=== PATIENT | male | born 1990 | race Caucasian/White ===

== ENCOUNTER 2018-07-25 20:29 | Emergency (ER) | payer BC, OTHER ==
[~2018-07-25] VITALS: Ht 177.8 cm; Wt 79.4 kg
[2018-07-25] MEDS ORDERED: NAPR-1071 PO (22:59)
[2018-07-25] MEDS ORDERED: NAPROXEN 250 MG (NAPROSYN) TABLET PO STA (23:00)
--- NOTE | 2018-07-25 23:00 | ED Lower Extremity ---
General Chief Complaint: Lower Extremity Stated Complaint: LT FOOT PAIN Nursing Triage Note: THE PT IS AMBULATORY TO THE ROOM WITHOUT DIFFICULTY. NO DISTRESS IS SEEN ON ARRIVAL. LOC IS NORMAL FOR THE PT. THE PT C/O LEFT FOOT PAIN. NO RECENT INJURY. Nursing Sepsis Screen: No Definite Risk History of Present Illness Date Seen by Provider: Jul 25, 2018 Time Seen by Provider: 21:15 Initial Comments 27-year-old male presents for left foot pain. He denies a specific injury to his foot. It mainly hurts along the arch and mid foot. He has been working aggressively, building fence and doing cattle. His pain has been intermittent over the last week, however he noted it to be more persistent today. Pain/Injury Location: left foot Method of Injury: unknown Allergies and Home Medications Allergies Coded Allergies: No Known Drug Allergies (Unverified , 07/25/18) Home Medications Naproxen 500 Mg Tablet, 500 MG PO BID Prescribed by: SHAYLA NIX on 07/25/18 1222 Patient Home Medication List Home Medication List Reviewed: Yes Review of Systems Constitutional: no symptoms reported, see HPI Musculoskeletal: see HPI, joint pain (left foot) All Other Systems Reviewed Negative Unless Noted: Yes Past Dzdgnqd-Xcijti-Alwias Hx Past Med/Social Hx: Reviewed Nursing Past Med/Soc Hx Patient Social History Recent Foreign Travel: No Contact w/Someone Who Travel: No Recent Infectious Disease Expo: No Physical Abuse: No Sexual Abuse: No Mistreated: No Fear: No Physical Exam Vital Signs Vital Signs - First Documented 07/25/18 07/25/18 20:38 23:10 Temp 96.9 Pulse 83 Resp 16 B/P (MAP) 150/74 (99) Pulse Ox 98 O2 Delivery Room Air Capillary Refill : Less Than 3 Seconds Height, Weight, BMI Height: 5'10.00" Weight: 175lbs. oz. 79.377182hi; BMI Method:Estimated General Appearance: WD/WN, no apparent distress Cardiovascular: normal peripheral pulses, regular rate, rhythm, no edema, no murmur Respiratory: chest non-tender, lungs clear, normal breath sounds Gastrointestinal: normal bowel sounds, non tender, soft Feet: left foot normal range of motion, left foot bone tenderness (first through third metatarsals), left foot soft tissue tenderness, left foot swelling , left foot other (patient has pain with toe walk, he is able to walk on his heels. Pes planus noted.) Neurologic/Psychiatric: no motor/sensory deficits, alert, normal mood/affect, oriented x 3 Skin: normal color, warm/dry Lymphatic: no adenopathy Progress/Results/Core Measures Results/Orders My Orders Orders - BOYDSHAYLA Doyle JOAN Foot, Left, 3 Views (07/25/18 22:09) Tramadol Tablet (Ultram Tablet) (07/25/18 22:09) Ibuprofen Tablet (Motrin Tablet) (07/25/18 23:04) Vital Signs/I&O 07/25/18 07/25/18 20:38 23:10 Temp 96.9 98.1 Pulse 83 60 Resp 16 18 B/P (MAP) 150/74 (99) 133/73 (93) Pulse Ox 98 98 O2 Delivery Room Air Blood Pressure Mean: 99 Departure Impression Primary Impression: Sprain of foot, left Qualified Codes: S93.602A - Unspecified sprain of left foot, initial encounter Disposition: HOME, SELF-CARE Condition: Improved Departure-Patient Inst. Decision time for Depature: 22:30 Referrals: JOHAN APPLE MD (PCP/Family) Primary Care Physician Patient Instructions: Sprain (DC) Add. Discharge Instructions: Ice and elevate left foot for 20 minutes 2-3 times a day. Take Naprosyn one tablet twice daily as prescribed. Until you get the Naprosyn, you can take Ibuprofen 600 mg every 8 hours, but don't take Ibuprofen or Advil while taking Naprosyn. You may add additional Tylenol 650 mg every 6 hours as needed for pain. Use Ayaan wrap for the next 3-4 days, or until symptoms are improving. Get an arch support insert for your shoe or foot wrap. Follow-up with your primary care provider if symptoms are not improving or worsen. Return to emergency department for new, urgent health care problems. All discharge instructions reviewed with patient and/or family. Voiced understanding. Scripts Naproxen (Naprosyn) 500 Mg Tablet 500 MG PO BID, #30 TAB 2 Refills Prov: BOYDSHAYLA FRANCO 07/25/18 BOYDSHAYLA Jul 25, 2018 23:00
[2018-07-25] MEDS ORDERED: IBUPROFEN 800 MG (MOTRIN) TAB PO STA (23:04)
[2018-07-25 23:10] VITALS: BP 133/73
--- NOTE | 2018-07-26 07:19 | Diagnostic Imaging Report ---
INDICATION: Left foot pain 3 views of the left foot show no fracture, dislocation or other acute abnormalities. IMPRESSION: Negative left foot. Dictated by: Dictated on workstation # [id number]
== END 2018-07-25 23:10 | disposition home or self-care (01) ==
LOC: EDUNIT# 20:29 → ER 20:30
DX: S93.602A Unspecified sprain of left foot, initial encounter (principal); X58.XXXA Exposure to other specified factors, initial encounter
CPT/HCPCS: 73630

== ENCOUNTER → 2019-03-19 | Outpatient (CLI) | payer BC ==
[~2019-03-19] MED LIST: NAPR-1071 PO
[2019-03-19 07:52] LABS: HEMOGLOBIN 15.6 G/DL (13.3-17.7); MEAN PLATELET VOLUME 11.3 FL (7.4-10.4); RED CELL DISTRIBUTION WIDTH 12.5 % (10.0-14.5); WHITE BLOOD COUNT 7.9 10^3/uL (4.3-11.0)
[2019-03-19 08:13] LABS: ALANINE AMINOTRANSFERASE 14 U/L (0-55); ALBUMIN 4.8 GM/DL (3.2-4.5); ALKALINE PHOSPHATASE 82 U/L (40-136); BILIRUBIN,TOTAL 1.4 MG/DL (0.1-1.0); BUN/CREATININE RATIO 11; CARBON DIOXIDE 26 MMOL/L (21-32); CHLORIDE 104 MMOL/L (98-107); CREATININE SERUM 1.16 MG/DL (0.60-1.30); GFR ESTIMATED > 60; GLUCOSE 93 MG/DL (70-105); POTASSIUM 4.3 MMOL/L (3.6-5.0); SODIUM 142 MMOL/L (135-145); TOTAL PROTEIN 7.2 GM/DL (6.4-8.2)
--- NOTE | 2019-03-19 08:54 | Diagnostic Imaging Report ---
PROCEDURE: US Gallbladder. TECHNIQUE: Multiple real-time grayscale images were obtained over the right upper quadrant in various projections. INDICATION: Diarrhea. FINDINGS: Liver measures 16 cm in size. No discrete liver mass is identified. The portal vein is patent and shows normal direction of flow. Gallbladder is without stones or sludge. No wall thickening or biliary duct dilatation is seen. Pancreas is unremarkable. Right kidney is unremarkable. No calculi or hydronephrosis is seen. There is no ascites. IMPRESSION: Unremarkable gallbladder ultrasound. Dictated by: Dictated on workstation # [id number]
== END ==
LOC: RAD 07:36
PROVIDERS: ATTEND Nurse Practitioner Family
DX: R19.7 Diarrhea, unspecified (principal)
CPT/HCPCS: 36415; 76705; 80053; 85027

== ENCOUNTER → 2019-04-09 | Outpatient (CLI) | payer BC ==
[2019-04-09] MEDS: CATHETER FLUSH 10 ML SYR IV PRN (11:52)
--- NOTE | 2019-04-09 17:15 | Diagnostic Imaging Report ---
INDICATION: Diarrhea. TECHNIQUE: Patient was administered 5.5 mCi of technetium-99m Choletec intravenously and imaging over the abdomen was performed. At 75 minutes, patient ingested Ensure and gallbladder ejection fraction is calculated. FINDINGS: There is homogeneous uptake of activity by the liver. There is excretion of activity into the common duct and gallbladder. There is passage of activity into the small bowel. Gallbladder ejection fraction is abnormally low at 12%. IMPRESSION: 1. Patent cystic duct and common bile duct. 2. Low gallbladder ejection fraction of 12%. Dictated by: Dictated on workstation # [id number]
== END ==
LOC: CARD 11:34
PROVIDERS: ATTEND Nurse Practitioner Family
DX: K58.0 Irritable bowel syndrome with diarrhea (principal)
CPT/HCPCS: 78227

== ENCOUNTER 2019-04-20 06:00 | Outpatient (CLI) | payer BC ==
[~2019-04-20] VITALS: Ht 177.8 cm; Wt 72.6 kg
[2019-04-22] MEDS ORDERED: ACHD5005 PO (10:20)
== END 2019-04-20 16:03 | disposition home or self-care (01) ==
LOC: PREOP 06:00
PROVIDERS: ATTEND Surgery
DX: Z01.818 Encounter for other preprocedural examination (principal)

== ENCOUNTER 2019-04-22 07:33 | Day surgery (SDC) | payer BC ==
[2019-04-22] VITALS (11 sets, daily range): BP systolic 121–142; BP diastolic 84–96
[~2019-04-22] VITALS: Ht 177.8 cm; Wt 72.6 kg
[~2019-04-22 07:33] MED LIST changes: +BUP/EPI 0.25% 1:200,000 (MARCAINE) 10 ML VIAL IJ ONE
[2019-04-22] MEDS ORDERED: fentaNYL INJECTION 100 MCG/2 ML AMP ONE (07:55)
[2019-04-22] MEDS ORDERED: MIDAZOLAM 2 MG/2 ML (VERSED) VIAL ONE (07:55)
[2019-04-22] MEDS ORDERED: ONDANSETRON 4 MG/2 ML (SDV) Z0FRAN ONE (07:55)
[2019-04-22] MEDS ORDERED: SEVOFLURANE (ULTANE) 15 ML INHAL SOLN ONE ×3 (07:55→09:47)
[2019-04-22] MEDS ORDERED: proPOfol 200 MG/20 ML (DIPRIVAN) VIAL IV ONE (07:55)
[2019-04-22] MEDS ORDERED: LIDOCAINE PF 2% 5 ML (XYLOCAINE) VIAL ONE (07:55)
[2019-04-22] MEDS ORDERED: DEXAMETHASONE 10 MG/ML (DECADRON) 1 ML VIAL ONE (07:55)
[2019-04-22] MEDS ORDERED: INDOCYANINE GREEN 25 MG (ICG) VIAL IV NR (08:00)
[2019-04-22] MEDS ORDERED: ceFAZolin 2 GM/50 ML NS 50 ML IV ONE (08:00)
[2019-04-22] MEDS ORDERED: ROCURONIUM 10 MG/ML 5 ML SYRINGE IV ONE (08:02)
--- NOTE | 2019-04-22 08:24 | Progress Note-Pre Operative ---
Pre-Operative Progress Note H&P Reviewed The H&P was reviewed, patient examined and no changes noted. Time Seen by Provider: 08:17 Date H&P Reviewed: Apr 22, 2019 Time H&P Reviewed: 08:18 Pre-Operative Diagnosis: Biliary Dyskinesia MIGUEL SHEPHERD DO Apr 22, 2019 08:24
[2019-04-22] MEDS: LACTATED RINGERS 1,000 ML IV PRN ×2 (08:30→09:50)
[2019-04-22] MEDS ORDERED: NEOSTIGMINE 3 MG/3 ML VIAL ONE (09:14)
[2019-04-22] MEDS ORDERED: GLYCOPYRROLATE 0.2 MG/ML (ROBINUL) 2 ML VIAL ONE (09:14)
--- NOTE | 2019-04-22 10:18 | Progress Note-Post Operative ---
Post-Operative Progess Note Surgeon (s)/Rebar Bender (s) Surgeon MIGUEL SHEPHERD DO Rebar Bender: Theron Pre-Operative Diagnosis Biliary Dyskinesia Post-Operative Diagnosis Same plus adhesions Procedure & Operative Findings Date of Procedure 04/22/19 Procedure Performed/Findings Lap kerry with Firefly Cholangiogram, with Robot Anesthesia Type GET Estimated Blood Loss Estimated blood loss (mL): scant Specimens/Packing Specimens Removed GB and contents MIGUEL SHEPHERD DO Apr 22, 2019 10:18
--- NOTE | 2019-04-22 10:19 | Discharge Inst-Surgical ---
Discharge Inst-Surgical Reconcile Patient Problems Problems Reviewed?: Yes Depart Medication/Instructions New, Converted or Re-Newed RX: RX Given to Pt/Family Patient Instructions Follow up Appt: Make appointment for 1 week. [phone] Instructions: No lifting greater than 20 pounds. No strenuous activity. May shower in 24 hours, no tub bath or soaking. Use incentive spirometer at home as directed. No Smoking Skin/Wound Care: May remove bandages in am. You need to leave the Dermabond on incision it will fall off on it's own. Symptoms to Report: Appetite Changes, Extremity Discoloration, Numbness/Tingling, Swelling Increased, Bleeding Excessive, Eyesight Changes, Pain Increased, Urine Color Change, Constipation(Persistent), Fever over 101 degree F, Pain/Pressure in chest, Urinating Difficulty, Cough Up/Vomit Blood, Heart Beat Irreg/Pounding, Pain/Pressure in jaw, Cramps in feet or legs, Lightheadedness, Pain/Pressure in shoulder, Diarrhea(Persistent), Memory Changes Suddenly, Questions/Concerns, Weight gain consecutive days, Dizziness/Fainting, Nausea/Vomiting, Shortness of Breath, Weight gain over 2 pounds If questions or concerns contact your physician Or seek help at emergency department. Activity Activity as Tolerated: Yes Activity Instructions: Avoid Stress to Incision Driving Instructions: No Driving/Refer to Diet Discharge Diet: Avoid Fatty Foods, Low Fat/Low Cholesterol Diet After 24 Hours: Clear Liquid if Nauseous If Any Problems/Questions/Issu: Contact Your Physician, Go to Emergency Room, Go to [facility] Skin/Wound Care Infection Signs and Symptoms: Increased Redness, Foul Odor of Wound, Increased Drainage, Skin Itchy or Has a Rash, Increased Swelling, Temperature Above 101 F Wound Care Comment: heating pad to shoulder or neck tonight for pain Bathing Instructions: Shower Stitches/Kodi/Dermabond Dis: Dermabond Ice Pack: Ice On and Off Site MIGUEL SHEPHERD DO Apr 22, 2019 10:19
[2019-04-22] MEDS ORDERED: ACHD5005 PO (10:20)
--- NOTE | 2019-04-22 10:28 | Anesthesia-General Post-Op ---
General Patient Condition Mental Status/LOC: Same as Preop Cardiovascular: Satisfactory Nausea/Vomiting: Absent Respiratory: Satisfactory Pain: Controlled Complications: Absent Post Op Complications Complications None Follow Up Care/Instructions Patient Instructions None needed. Anesthesia/Patient Condition Patient Condition Patient is doing well, no complaints, stable vital signs, no apparent adverse anesthesia problems. No complications reported per nursing. ELDA CALDERON CRNA Apr 22, 2019 10:28
[2019-04-22] MEDS ORDERED: MEPERIDINE (DEMEROL) INJ 50 MG/ML IVP ONE (10:45)
[2019-04-22] MEDS ORDERED: ONDANSETRON 4 MG/2 ML (SDV) Z0FRAN IVP PRN (10:45)
[2019-04-22] MEDS ORDERED: morphine INJ 10 MG/ML 1ML (SYR OR VIAL) IVP ONE (10:45)
--- NOTE | 2019-04-22 11:20 | NUR ---
TO AMB SURG PER CART FROM PAR. ALERT, RATES ABDOMINAL DISCOMFORT 3. DERMABOND INTACT TO X4 LAP SURGICAL SITES, ICE PACK ON. PO FLUIDS AND CRACKERS PROVIDED. BED LOW, LOCKED, RAILS UP X2. CALL LIGHT TO PT AND FAMILY AT SIDE.
[2019-04-22] MEDS ORDERED: HYDROcodone/APAP 5 MG/325 MG (LORTAB) TAB PO ONE (12:00)
--- NOTE | 2019-04-22 12:01 | NUR ---
TAKING PO FLUIDS AND CRACKERS WITHOUT PROBLEM. LORTAB 5/325 MG, ONE TAB, GIVEN PO FOR C/O ABD PAIN RATED 3.
--- NOTE | 2019-04-22 12:40 | NUR ---
RATES ABD/SURGICAL SITE PAIN 2. ALERT, VISITING WITH FAMILY. STATES HE IS READY FOR DISMISSAL.
--- NOTE | 2019-04-22 16:49 | OPERATIVE REPORT ---
DATE OF SERVICE: 04/22/2019 PREOPERATIVE DIAGNOSIS: Biliary dyskinesia. POSTOPERATIVE DIAGNOSES: 1. Biliary dyskinesia. 2. Adhesions. PROCEDURE: Laparoscopic cholecystectomy with robot and Firefly cholangiogram. SURGEON: Trell Heredia DO [employer]: Kevin Crump DO ANESTHESIA: General endotracheal tube. SPECIMEN: Gallbladder and contents. BLOOD LOSS: Scant. FLUIDS: Per anesthesia. POSTOPERATIVE CONDITION: Stable. INDICATION FOR THE PROCEDURE: The patient is a 28-year-old male, who has been having pain in the right upper quadrant. A HIDA scan showed biliary dyskinesia and wanted to get his gallbladder removed. FINDINGS: The patient had a distended gallbladder, some adhesions too, which usually indicates previous gallbladder attack and cholecystitis and this was removed. PROCEDURE NOTE: After informed consent was obtained, the patient was brought to the operating room, placed on the table in supine position, sterilely prepped and draped in normal fashion. Local lidocaine was used to infiltrate the skin above the umbilicus. I made an incision with #11 blade, carried down through the skin into subcutaneous tissue, deepened down to subcutaneous tissue with Bovie electrocautery down to the fascia. Fascia was incised with Bovie electrocautery, bluntly entered the abdomen, swept a finger around, placed 0 Vicryl [id number] suture and placed a 11 mm trocar port under direct visualization. Created pneumoperitoneum and placed 3 more ports in normal fashion using local lidocaine. A 11 blade for stab incision and then advanced the 8 mm robotic ports under direct visualization, one in the right lower quadrant, and 2 in the left upper quadrant. Once this was in, I then docked the robot. I then went to the console. Able to grasp the gallbladder at the fundus and taken in superior direction, noted adhesions. These were carefully taken down with Bovie electrocautery. Once these were completely free, then able to grasp the Charles's pouch and pulled in inferolateral direction, started dissecting out the cystic duct and cystic artery. Using Firefly, able to identify the cystic duct and followed it down to the common bile duct and then watched it go into the small intestine. At this point, then carefully started continuing to dissect out the cystic duct, identified the cystic artery, able to get around the cystic duct to create a space and then able to get around the cystic artery and then used the bipolar cautery to cauterize the cystic artery. Once this was done, then placed clips, 2 clips distally and 1 proximally on the cystic duct and then cut the cystic duct with Bovie electrocautery on a cut position. I then continued taking the gallbladder to the liver with L-hook cautery. Once this was completely removed, placed a bag in the abdomen, placed the gallbladder in the bag and I then removed the supraumbilical incision. Once this was done, then carefully removed all ports under direct visualization, allowed pneumoperitoneum to escape, closed supraumbilical incision, closing the fascia with 0 Vicryl suture previously placed. Copiously irrigated all incisions with normal saline, closing the three 8 mm incisions with 4-0 undyed Monocryl subcuticular stitches. Area was cleaned and dried. Dermabond was placed. Sponge, instrument and needle counts were correct at the end of the case. Dr. Crump assisted in this case helping to make incisions, close incisions as well as identify anatomy. The patient tolerated the procedure well. Job ID: [id number] DocumentID: [id number] Dictated Date: 04/22/2019 10:09:45 Datastage Developer Date: 04/22/2019 16:48:29 Dictated By: TRELL HEREDIA DO
== END 2019-04-22 13:00 | disposition home or self-care (01) ==
LOC: SDC 07:33
PROVIDERS: ATTEND Surgery
DX: K81.1 Chronic cholecystitis (principal); K82.8 Other specified diseases of gallbladder; K66.0 Peritoneal adhesions (postprocedural) (postinfection); Z82.49 Family history of ischemic heart disease and other diseases of the circulatory system; Z87.891 Personal history of nicotine dependence
CPT/HCPCS: 87081; 88304; 94664

== ENCOUNTER → 2020-10-17 | Outpatient (CLI) | payer BC ==
[~2020-10-17] MED LIST changes: +ACHD5005 PO; -BUP/EPI 0.25% 1:200,000 (MARCAINE) 10 ML VIAL IJ ONE
--- NOTE | 2020-10-17 16:56 | Diagnostic Imaging Report ---
EXAMINATION: CT head without contrast. TECHNIQUE: Multiple contiguous axial images were obtained through the brain without the use of intravenous contrast. All CT scans use one or more of the following dose optimizing techniques: automated exposure control, MA and/or KvP adjustment based on a patient size and exam type, or iterative reconstruction. HISTORY: Headaches. Dizziness. Migraines. COMPARISON: None available. FINDINGS: No large acute territorial ischemia, mass, or hemorrhage. No midline shift or mass effect. The ventricles, cortical sulci, and basilar cisterns are patent and unremarkable. The orbits are normal. A small amount of retained secretions are seen in the right ethmoid and right frontal sinuses. Mastoid air cells are clear. No soft tissue abnormality is seen. No osseus lesions or fractures are seen. IMPRESSION: 1. No large acute territorial ischemia, mass, or hemorrhage. Dictated by: Dictated on workstation # [id number]
== END ==
LOC: RAD 16:12
PROVIDERS: ATTEND Nurse Practitioner Family
DX: G43.909 Migraine, unspecified, not intractable, without status migrainosus (principal)
CPT/HCPCS: 70450

== ENCOUNTER 2021-02-01 08:31 | Outpatient (CLI) | payer BC | END 2021-02-01 08:50 | LOC: SLEEP 08:31 | PROVIDERS: ATTEND Nurse Practitioner | DX: G47.33 Obstructive sleep apnea (adult) (pediatric) (principal); G47.10 Hypersomnia, unspecified; H81.8X3 Other disorders of vestibular function, bilateral | CPT/HCPCS: G0399 ==

== ENCOUNTER → 2021-02-22 | Outpatient (CLI) | payer BC ==
--- NOTE | 2021-02-27 11:55 | Holter Monitor ---
HOLTER MONITOR DATE OF PROCEDURE: 02/22/2021. INDICATION: Sinus bradycardia. PROCEDURE: A 24-hour Holter monitor was obtained for a total of 24 hours. The study quality is adequate. RESULTS: 1. Baseline sinus rhythm with an average heart rate of 67 bpm, ranging from 41- 132 bpm. 2. There were occasional (325), isolated premature supraventricular complexes and 17 supraventricular couplets. 3. There were rare (2), isolated premature ventricular complexes. 4. There were no pauses exceeding 2 seconds in duration. 5. No cardiac symptoms were reported during the study. IMPRESSION: 1. This is a 24-hour Holter monitor report. 2. Baseline sinus rhythm with an average heart rate of 67 bpm, ranging from 41- 132 bpm with occasional supraventricular ectopy as isolated and couplet beats and rare, isolated premature ventricular complexes. 3. No cardiac symptoms were reported during the study. OSVALDO ZENG JR, MD Feb 27, 2021 11:55
== END ==
LOC: CARD 11:50
PROVIDERS: ATTEND Internal Medicine Cardiovascular Disease
DX: R00.1 Bradycardia, unspecified (principal)
CPT/HCPCS: 93225; 93226; 93306